=== PATIENT | female | born 1995 | race Caucasian/White ===

== ENCOUNTER 2025-08-18 21:41 | Emergency (ER) | payer BC, SELFPAY ==
--- OUTSIDE RECORDS SUMMARY | 2019-04-06 13:00 | XMS_ITS | Encounter Summary ---
Author Organization [facility] [place] [address] Care Team Providers Care Conference Concierge Name Role Phone Jimi Aldridge DO, Viral Primary Care Provider [phone] Encounter Details Date Type Department Care Team (Late st Contact Info) Description 04/06/2019 1:00 PM EDT Hospital Encounter EDG OB PREADM NURSE [facility] [place] [address] Social History Tobacco Use Types Packs/Day Years Used Date Smoking Tobacco: Never Smokeless Tobacco: Never Alcohol Use Standard Drinks/Week Comments No 0 (1 standard drink = 0.6 oz pur e alcohol) Overall Financial Resource Strain (CARDIA) Answe r Date Recorded How hard is it for you to pa y for the very basics like food, housing, medical care, and heating? Somewhat hard 12/28/2023 PHQ-2 Answer Date Recorded PHQ-2 Total Score 0 08/17/2024 [facility] [place] of Occupat ional Health - Occupational Stress Questionnaire Answer Date Recorded Do you feel stress - tense, restless, nervous, or anxious, or unable to sleep at night because your mind is troubled all the time - these days? To some extent 07/08/2023 Exercise Vital Sign Answer Date Recorde d On average, how many days pe r week do you engage in moderate to strenuous exercise (like a brisk walk)? 0 days 07/08/2023 On average, how many minutes do you engage in exercise at this level? 0 min 07/08/2023 Hunger Vital Sign Answer Date Recorded Within the past 12 months, y ou worried that your food would run out before you got the money to buy more. Never true 12/28/19 24 Within the past 12 months, t he food you bought just didn't last and you didn't have money to get more. Never true 12/28/2023 PRAPARE - Transportation Answer Date Re corded In the past 12 months, has l ack of transportation kept you from medical appointments or from getting medications? No 12/16 In the past 12 months, has l ack of transportation kept you from meetings, work, or from getting things needed for daily living? No 12/28/2023 Housing Stability Vital Sign Answer Joaquin e Recorded In the last 12 months, was t here a time when you were not able to pay the mortgage or rent on time? Yes 12/28/2023 In the last 12 months, how many places have you lived? 1 12/28/2023 In the last 12 months, was t here a time when you did not have a steady place to sleep or slept in a group home (including now)? No 12/28/2023 Sexually Active Control Partners Comments Yes Injection Male Comments No Sex and Gender Information Value Date Recorded Sex Assigned at Not on file Legal Sex Female 3:51 AM EDT Gender Identity Not on file Sexual Orientation Not on file COVID-19 Exposure Response Date Recorded In the last 10 days, have yo u been in contact with someone who was confirmed or suspected to have Coronavirus/COVID-19? No / Unsure 06/06/2023 8:11 PM EDT documented as of this encounter Functional Status * Cognitive and Functional Status Question Answer Date of Assessment Author Is the person deaf or does he/she have serious difficulty hearing? No 08/17/2024 11:34 AM EDT Hafsa Calderon RMA Is the person blind or does he/she have serious difficulty seeing even when wearing glasses? No 08/17/2024 11:34 AM EDT Hafsa Calderon RMA Does this person have seriou s difficulty walking or climbing stairs? No 08/17/2024 11:34 AM EDT Hafsa Calderon RMA Does this person have difficulty dressing or bathing? No 08/17/2024 11:34 AM EDT Rina De Jesus RMA * Alcohol Screening Score Answer Date of Assessment Author 0 06/08/2019 10:06 AM Toma Padilla RN * Drug Screening Score Answer Date of Assessment Author 0 06/08/2019 10:06 AM Toma Padilla RN * Question Answer Date of Assessment Author How often do you have a drin k containing alcohol? 0 06/08/2019 10:06 AM Sabrina Padilla se, RN * Is the person deaf or does he/she have serious difficulty hearing? Answer Date of Assessment Author No 03/22/2019 8:52 PM Jaleesa Mckenzie RN * Is the person blind or does he/she have serious difficulty seeing even when wearing glasses? Answer Date of Assessment Author No 03/22/2019 8:52 PM Jaleesa Mckenzie RN * Does this person have serious difficulty walking or climbing stairs? Answer Date of Assessment Author No 03/22/2019 8:52 PM Jaleesa Mckenzie RN * Does this person have difficulty dressing or bathing? Answer Date of Assessment Author No 03/22/2019 8:52 PM Jaleesa Mckenzie RN * Because of a physical, mental or emotional condition, does this person have difficulty doing errands alone such as visiting a doctor's office or shopping? Answer Date of Assessment Author No 03/22/2019 8:52 PM Jaleesa Mckenzie RN * PHQ-9 Total Score Answer Date of Assessment Author 0 08/17/2024 11:34 AM EDT Rina Calderon RMA * Question Answer Date of Assessment Author Do you ever wish you weren't alive anymore? (Past 1 Month) 0 04/10/2022 4:04 PM Apryl Hercules RN Have you thought about doing something to make youself not alive anymore? (Past 1 Month) 0 04/10/2022 4:04 PM Alyssia Hercules RN * Recent Risk Level: Answer Date of Assessment Author No Risk, Screening Complete 04/10/2022 4:04 PM Alyssia Domingo, RN * Question Answer Date of Assessment Author Little interest or pleasure in doing things 0 08/17/2024 11:34 AM EDT Hafsa Calderon, RMA Feeling down, depressed, or hopeless 0 08/17/2024 11:34 AM EDT Hafsa Calderon, RMA PHQ-2 Total Score 0 08/17/2024 11:34 AM EDT Rina Calderon, RMA * Question Answer Date of Assessment Author Feeling Nervous, Anxious, or on Edge 3 08/17/2024 11:34 AM EDT Hafsa Calderon, RMA Not Being Able to Stop or Control Worrying 3 08/17/2024 11:34 AM EDT Hafsa Calderon, RMA Worrying too Much About Different Things 3 08/17/2024 11:34 AM EDT Hafsa Calderon, RMA Trouble Relaxing 3 08/17/2024 11:34 AM EDT Rina Calderon, RMA Being so Restless That it is Hard to Sit Still 0 08/17/2024 11:34 AM EDT Hafsa Calderon, RMA Becoming Easily Annoyed or Irritable 0 08/17/2024 11:34 AM EDT Hafsa Calderon, RMA Feeling Afraid as if Somethi ng Awful Might Happen 0 08/17/2024 11:34 AM EDT Hafsa Calderon, RMA TERI-7 Total Score 12 08/17/2024 11:34 AM EDT Rina Calderon, RMA * Suicide Severity Rating Answer Date of Assessment Author No Risk 08/11/2024 8:26 AM EDT Ambreen Sosa * [place] Suicide Severity Rating Scale (Q shift for moderate and high) Question Answer Date of Assessment Author 1. In the past month, have y ou wished you were or wished you could go to sleep and not wake up? 0 08/11/2024 8:26 AM EDT Sheyla Sosa 2. In the past month, have y ou actually had any thoughts of killing yourself? (If no, skip to question 6) 0 08/11/2024 8:26 AM EDT Mariya Sosa 6. Have you ever done anythi ng, started to do anything, or prepared to do anything to end your life? 0 08/11/2024 8:26 AM EDT Dinah Sosa documented as of this encounter Mental Status * Cognitive and Functional Status Question Answer Entry Date Author Because of a physical, menta l or emotional condition, does this person have difficulty doing errands alone such as visiting a doctor's office or shopping? No 08/17/2024 11:34 AM EDT Erica Calderonsalinas ALEKSANDR malave Because of a physical, menta l or emotional condition, does this person have serious difficulty concentrating, remembering or making decisions? No 08/17/2024 11:34 AM EDT Hafsa Calderon RMToma * Because of a physical, mental or emotional condition, does this person have serious difficulty concentrating, remembering or making decisions? Answer Entry Date Author No 03/22/2019 8:52 PM EDT Jaleesa Logan RN documented in this encounter Plan of Treatment Upcoming Encounters Date Type Department Care Team (Latest Contact Info) Description 08/23/2025 2:55 PM EDT Hospital Encounter [facility] [address] [place] [address] Aiden Méndez MD [address] [place] [address] DR NUR [address] [place] [address] Preop testing (Primary Dx) 08/23/2025 2:55 PM EDT Anesthesia Event [facility] [address] [place] [address] Sadia Donald, SEWING MACHINE REPAIRER HELPER [address] [facility] [address] [place] [address] 08/23/2025 2:55 PM EDT - 08/23/2025 4:00 PM EDT Surgery [facility] [address] [place] [address] Aiden Méndez MD [address] [place] [address] [place] [address] HEMORRHOIDECTOMY Scheduled Procedures Name Priority Associated Diagnoses Date/Ti me HEMORRHOIDECTOMY Thrombosed external hemorrhoid 08/23/2025 2:55 PM EDT documented as of this encounter Goals Goal Patient Goal Type Associated Problems Recent Progress Patient-Stated? Author Blood Pressure < 140/90 Blood Pressure 128/99(2024 9:44 AM EDT) No Rina Calderon RMA Maintain a healthy diet, exercise regularly and maintain an ideal body weight General No Silvia Urbano RMA documented as of this encounter Visit Diagnoses Not on filedocumented in this encounter Additional Health Concerns Infection Onset Date Last Indicated Resolved Time R/O COVID-19 12/06/2020 12/06/2020 12/26/2020 10:1 3 PM EST documented as of this encounter Care Teams Conference Concierge Relationship Specialty Start Date End Date Jong Krause DO [address] [place] [id number] PCP - General 08/26/10 12/08/20 documented as of this encounter
--- OUTSIDE RECORDS SUMMARY | 2025-06-26 13:56 | XMS_ITS | Encounter Summary ---
Author Organization [place] [address] Care Team Providers Care Auto Adjudication Specialist Name Role Phone Boyd Aldridge MD, Spike Kristian Castanon MD Primary Care Provider [phone] Encounter Details Date Type Department Care Team (Latest Contact Info) Description 06/26/2025 1:56 PM EDT - 06/26/2025 11:59 PM EDT Hospital Encounter [place] [address] Annual physical exam Discharge Disposition: Home or Self Care Social History Tobacco Use Types Packs/Day Years [...] Date Recorded PHQ-2 Total Score 0 08/17/2024 [facility] [place] of Occupat ional Health - Occupational Stress [...] place to sleep or slept in a skilled nursing (including now)? No 12/28/2023 Sexually Active Control Partners Comments Yes Injection Male Comments No Sex and Gender Information Value Date Recorded Sex Assigned at Not on file Legal Sex Female 3:51 AM EDT Gender Identity Not on file Sexual Orientation Not on file documented as of this encounter Functional Status * Is the person deaf or does he/she have serious difficulty hearing? Answer Date of Assessment Author No 08/17/2024 11:34 AM JÚNIORT Rina Calderon RMA * Is the person blind or does he/she have serious difficulty seeing even when wearing glasses? Answer Date of Assessment Author No 08/17/2024 11:34 AM EDT Rina Calderon RMA * Does this person have serious difficulty walking or climbing stairs? Answer Date of Assessment Author No 08/17/2024 11:34 AM Rina Durand RMA * Does this person have difficulty dressing or bathing? Answer Date of Assessment Author No 08/17/2024 11:34 AM EDT Rina Calderon RMA * Because of a physical, mental or emotional condition, does this person have difficulty doing errands alone such as visiting a doctor's office or shopping? Answer Date of Assessment Author No 08/17/2024 11:34 AM EDT Rina Calderon RMA documented as of this encounter Mental Status * Because of a physical, mental or emotional condition, does this person have serious difficulty concentrating, remembering or making decisions? Answer Entry Date Author No 08/17/2024 11:34 AM EDT Rina Calderon RMA documented in this encounter Medications at Time of Discharge escitalopram oxalate (LEXAPRO) 10 mg Oral TabletIndications :Generalized anxiety disorder Take 1 Tablet by mouth daily. 30 Tablet 3 06/04/2025 07/27/2025 omeprazole (PRILOSEC) 20 mg Oral Capsule, Delayed Release(E.C.)Asiya cations:Dyspepsia Take 1 Capsule by mouth 2 times daily (before meals). 60 Capsule 2 06/04/2025 07/27/2025 valsartan-hydroch lorothiazide (DIOVAN-HCT) 160-12.5 mg Oral TabletIndications :Benign essential HTN Take 1 Tablet by mouth daily. 30 Tablet 06/04/2025 07/27/2025 documented as of this encounter Discharge Disposition Disposition Code Departure Means Destination Home or Self Care documented in this encounter Plan of Treatment Upcoming Encounters Date Type Department Care Team (Latest Contact Info) Description 08/23/2025 2:55 PM EDT Hospital Encounter [facility] [address] [place] [address] Aiden Méndez MD [address] [facility] [place] [address] Preop testing (Primary Dx) 08/23/2025 2:55 PM EDT Anesthesia Event [facility] [address] [place] [address] Sadia Donald APRN [address] [facility] [place] [address] 08/23/2025 2:55 PM EDT - 08/23/2025 4:00 PM EDT Surgery [facility] [address] [place] [address] Aiden Méndez MD [address] [place] [address] [place] [address] HEMORRHOIDECTOMY Scheduled Procedures Name Priority Associated Diagnoses [...] Urbano RMA documented as of this encounter Procedures Procedure Name Priority Date/Time Associated Diagnosis Comments LIPID PANEL REFLEX Routine 06/26/2025 1: 56 PM EDT Annual physical exam CBC WITH DIFF Routine 06/26/2025 1:56 PM EDT Annual physical exam COMPREHENSIVE METABOLIC PANEL Routine 06/26/2025 1:56 PM EDT Annual physical exam documented in this encounter Results * (ABNORMAL) LIPID PANEL REFLEX (06/26/2025 1:56 PM EDT) Cholesterol 162 <200 mg/dL 06/26/2025 8:29 PM EDT [facility] Comment: < 200 Desirable 200 - 239 Borderline High >= 240 High Triglyceride 57 <150 mg/dL 06/26/2025 8:29 PM EDT [facility] Comment: < 150 Normal 150 - 199 Borderline High 200 - 499 High >= 500 Very High HDL 47 >=40 mg/dL 06/26/2025 8:29 PM EDT [facility] Comment: > 60 Optimal 40 - 60 Acceptable < 40 Low LDL Calculated 104(H) <100 mg/dL 06/26/2025 8:29 PM EDT [facility] Comment: < 100 Optimal 100 - 129 Near or above optimal 130 - 159 Borderline High 160 - 189 High >= 190 Very High The National Institutes of Health (NIH) equation is used for all lipid panels that report calculated LDL (LDL-C). Non-HDL-C Calculated 115 <=129 mg/dL 06/26/2025 8:29 PM EDT [facility] Comment: <130 Desirable 130-159 Above Desirable 160-189 Borderline High 190-219 High >= 220 Very High Fasting Specimen? No None 025 8:29 PM EDT [facility] Blood VENOUS BLOOD / Unknown Venipuncture / Unknown 06/26/2025 1:56 PM EDT 06/26/2025 1:56 PM EDT us Kristian Vo MD CHEMISTRY ORDERABLES Final Resu lt [facility], [facility] [address] [facility] , [place] [address] * COMPREHENSIVE METABOLIC PANEL (06/26/2025 1:56 PM EDT) Sodium 138 136 - 145 mmol/L 06/26/2025 8:29 PM EDT [facility] Potassium 3.7 3.5 - 5.0 mmol/L 06/26/2025 8:29 PM EDT [facility] Chloride 104 98 - 107 mmol/L 06/26/2025 8:29 PM EDT [facility] Total CO2 24 22 - 29 mmol/L 06/26/2025 8:29 PM EDT [facility] Anion Gap 10 7 - 16 mmol/L 06/26/2025 8:29 PM EDT [facility] Calcium 9.6 8.6 - 10.4 mg/dL 06/26/2025 8:29 PM EDT [facility] Glucose Lvl 71 70 - 99 mg/dL 06/26/2025 8:29 PM EDT [facility] BUN 11 6 - 20 mg/dL 06/26/2025 8:29 PM EDT [facility] Creatinine 0.71 0.51 - 1.30 mg/dL 06/26/2025 8:29 PM EDT [facility], [facility] Albumin 4.3 3.5 - 5.2 gm/dL 06/26/2025 8:29 PM EDT [facility], [facility] Total Protein 7.9 6.4 - 8.3 gm/dL 06/26/2025 8:29 PM EDT [facility], [facility] Bili Total 0.3 0.2 - 1.3 mg/dL 06/26/2025 8:29 PM EDT [facility], [facility] ALT 11 <=41 U/L 06/26/2025 8:29 PM EDT [facility], [facility] AST 17 <=40 U/L 06/26/2025 8:29 PM EDT [facility] Alk Phos 83 36 - 123 U/L 06/26/2025 8:29 PM EDT [facility], [facility] eGFR (CKD-EPIcr 2020) 118 >=60 mL/min/1.7 3 m2 06/26/2025 8:29 PM EDT [facility], [facility] Comment:Estimated GFR was ca lculated using the CKD-EPIcr (2020) equation refit without race. The equation is recommended by the National Kidney Foundation - [place] [employer] of Nephrology Task Force. Blood VENOUS BLOOD / Unknown Venipuncture / Unknown 06/26/2025 1:56 PM EDT 06/26/2025 1:56 PM EDT us Kristian Vo MD CHEMISTRY ORDERABLES Final Resu lt [facility], [facility] [address] [facility] , [address] [place] [id number] * (ABNORMAL) CBC WITH DIFF (06/26/2025 1:56 PM EDT) WBC 6.5 3.7 - 10.3 x10(3)/mc L 06/26/2025 10:27 PM EDT [facility], [facility] RBC 4.90 3.90 - 5.20 x10(6)/mc L 06/26/2025 10:27 PM EDT [facility], [facility] Hgb 11.1(L) 11.2 - 15.7 g/dL 06/26/2025 10:27 PM EDT [facility] Hct 39.4 34.0 - 45.0 % 06/26/2025 10:27 PM EDT [facility] MCV 80.4 80.0 - 100.0 fL 06/26/2025 10:27 PM EDT [facility] MCH 22.7(L) 26.0 - 34.0 pg 06/26/2025 10:27 PM EDT [facility] MCHC 28.2(L) 30.7 - 35.5 g/dL 06/26/2025 10:27 PM EDT [facility] RDW 19.2(H) <=14.9 % 06/26/2025 10:27 PM EDT [facility] Platelet 530(H) 155 - 369 x10(3)/mc L 06/26/2025 10:27 PM EDT [facility] MPV 10.6 8.8 - 12.5 fL 06/26/2025 10:27 PM EDT [facility] Neut Percent 63.5 % 06/26/2025 10:27 PM EDT [facility] Comment:Neutrophils equals s egs plus bands Imm Gran% 0.3 % 06/26/2025 10:27 PM EDT [facility] Comment:Automated count of m etamyelocytes, myelocytes and promyelocytes. Lymph Percent 24.9 % 06/26/2025 10:27 PM EDT [facility] Holt Percent 9.8 % 06/26/2025 10:27 PM EDT [facility] Eos Percent 0.9 % 06/26/2025 10:27 PM EDT [facility] Baso Percent 0.6 % 06/26/2025 10:27 PM EDT [facility] Neut # 4.1 1.6 - 6.1 x10(3)/mc L 06/26/2025 10:27 PM EDT [facility] Comment:Neutrophils equals s egs plus bands IMMGRAN# 0.0 0.0 - 0.1 x10(3)/mc L 06/26/2025 10:27 PM EDT [facility] Comment:Automated count of m etamyelocytes, myelocytes and promyelocytes. An absolute IG <0.1 is reported as 0.0. Lymph # 1.6 1.2 - 3.9 x10(3)/mc L 06/26/2025 10:27 PM EDT [facility] [place] # 0.6 0.3 - 0.9 x10(3)/mc L 06/26/2025 10:27 PM EDT [facility] Eos# 0.1 0.0 - 0.5 x10(3)/mc L 06/26/2025 10:27 PM EDT [facility] Baso # 0.0 0.0 - 0.1 x10(3)/mc L 06/26/2025 10:27 PM EDT [facility] Hypochrom Slight 06/26/2025 10:27 PM EDT [facility] [place] Cell Moderate 06/26/2025 10:27 PM EDT [facility] Elliptocyte Occasional 06/26/2025 10:27 PM EDT [facility] Schistocyte 0-1 /HPF 06/26/2025 10:27 PM EDT [facility] Blood VENOUS BLOOD / Unknown Venipuncture / Unknown 06/26/2025 1:56 PM EDT 06/26/2025 1:56 PM EDT us Kristian Vo MD HEMATOLOGY ORDERABLES Final Res ult [facility] [address] [facility] , [place] [address] documented in this encounter Visit Diagnoses Diagnosis Annual physical exam Routine general medical examination at a health care facility Preop testing Preoperative examination, unspecified Thrombosed external hemorrhoid External thrombosed hemorrhoids documented in this encounter Care Teams Auto Adjudication Specialist Relationship Specialty Start Date End Date Kristian Vo MD [address] [place] [address] PCP - General Internal Medicine 12/24/22 Spike Nix MD Medical Oncologist Internal Medicine-Hematology and Oncology 11/03/21 documented as of this encounter
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
--- OUTSIDE RECORDS SUMMARY | 2025-08-02 09:00 | XMS_ITS | Encounter Summary ---
Author Organization [place] [address] Care Team Providers Care Drum Handler Name Role Phone Boyd Aldridge MD, [facility] Kristian Vo MD Primary Care Provider [phone] Reason for Referral * MRI/CAT Scan (Emergency) - PCP Precert Acquired Specialty Diagnoses / Procedures Referred By Contac t Referred To Contact Radiology Diagnoses Abdominal pain, LLQ (left lower quadrant) Abdominal pain, RLQ (right lower quadrant) Procedures CT ABDOMEN PELVIS W CONTRAST Kristian Vo MD [address] [place] [address] Phone: tel: fax: Referral ID Status Reason Start Date Expiration Date V isits Requested Visits Authorized [id number] PCP Precert Acquired 08/02/2025 08/02/2026 1 1 Reason for Visit * Reason Comments Abdominal Pain Lower right abdomina l pain started this morning. Painful when touched. 10 on pain scale. Pt still has their appendix. Encounter Details Date Type Department Care Team (Late st Contact Info) Description 08/02/2025 9:00 AM EDT Office Visit [facility] [address] [place] [address] Kristian Vo MD [address] [place] [address] Abdominal pain, LLQ (left lower quadrant) (Primary Dx); Abdominal pain, RLQ (right lower quadrant) Social History Tobacco Use Types Packs/Day Years [...] Date Recorded PHQ-2 Total Score 0 08/17/2024 [facility] Occupat ional Health - Occupational Stress [...] place to sleep or slept in a long term (including now)? No 12/28/2023 Sexually Active Control Partners Comments Yes Injection Male Comments No Sex and Gender Information Value Date Recorded Sex Assigned at Not on file Legal Sex Female 3:51 AM EDT Gender Identity Not on file Sexual Orientation Not on file documented as of this encounter Last Filed Vital Signs Vital Sign Reading Time Taken Comments Blood Pressure 120/70 08/02/2025 8:40 AM EDT Pulse 94 08/02/2025 8:40 AM EDT Temperature 36.6 C (97.8 F) 08/02/2025 8:40 AM EDT Respiratory Rate 18 08/02/2025 8:40 AM EDT Oxygen Saturation 99% 08/02/2025 8:40 AM EDT Inhaled Oxygen Concentration - - Weight 72.1 kg (159 lb) 08/02/2025 8:40 AM EDT Height 160 cm (5' 3 ) 08/02/2025 8:40 AM EDT Body Mass Index 28.17 08/02/2025 8:40 AM EDT documented in this encounter Functional Status * Is the person deaf or does he/she have serious difficulty hearing? Answer Date of Assessment Author No 08/17/2024 11:34 AM Esvin Durand RMA * Is the person blind or does he/she have serious difficulty seeing even when wearing glasses? Answer Date of Assessment Author No 08/17/2024 11:34 AM Esvin Durand RMA * Does this person have serious difficulty walking or climbing stairs? Answer Date of Assessment Author No 08/17/2024 11:34 AM Esvin Durand RMA * Does this person have difficulty dressing or bathing? Answer Date of Assessment Author No 08/17/2024 11:34 AM Esvin Durand RMA * Because of a physical, mental or emotional condition, does this person have difficulty doing errands alone such as visiting a doctor's office or shopping? Answer Date of Assessment Author No 08/17/2024 11:34 AM EDT Mainous, Esvin, RMA documented as of this encounter Mental Status * Because of a physical, mental or emotional condition, does this person have serious difficulty concentrating, remembering or making decisions? Answer Entry Date Author No 08/17/2024 11:34 AM EDT Esvin Hudson RMA documented in this encounter Progress Notes * Kristian Vo MD - 08/02/2025 9:00 AM EDT Images from the original note were not included. Assessment Diagnoses and all orders for this visit: Abdominal pain, LLQ (left lower quadrant) - SEP URINALYSIS POC - US ABDOMEN LIMITED; Future A new medicine wasprescribed during this office visit. I did discuss the reason for prescribing this new medication. I also informed of possible [...] on the AVS and they are aware. Iinquired of any questions and answered accordingly. Progress Note: Vitals: 08/02/25 0840 BP: 120/70 Pulse: 94 Resp: 18 Temp: 97.8 ??F (36.6 ??C) TempSrc: Temporal SpO2: 99% Weight: 159 lb (72.1 kg) Height: 5' 3 (1.6 m) SUBJECTIVE: Chief Complaint Patient presents with Abdominal Pain Lower right abdominal pain started this morning. Painful when touched. 10 on pain scale. Pt still has their appendix. HPI: LLQ pain 1d Started this morning Hurts to touch No fever/dyduria Lamp-today Review of Systems Constitutional: Negative for fever. HENT: Negative for congestion. Respiratory: Negative for cough and shortness of breath. Cardiovascular: Negative for chest pain. Gastrointestinal: Positive for abdominal pain. Neurological: Positive for headaches. Negative for dizziness and light-headedness. OBJECTIVE: Physical Exam Constitutional: Appearance: She is well-developed. HENT: Right Ear: External ear normal. Left Ear: External ear normal. Nose: Nose normal. Eyes: Pupils: [...] normal and symmetric. documented in this encounter Miscellaneous Notes * Addendum Note - Esvin Hudson RMA - 08/02/2025 9:00 AM EDTAddended by: ESVIN HUDSON on: 08/02/2025 12:47 PM Modules accepted: Orders documented in this encounter Plan of Treatment Upcoming Encounters Date Type Department Care Team (Latest Contact Info) Description 08/23/2025 2:55 PM EDT Hospital Encounter [facility] [address] [place] [address] Aiden Méndez MD [address] [place] [address] DR N[address] [place] [address] Preop testing (Primary Dx) 08/23/2025 2:55 PM EDT Anesthesia Event [facility] [address] [place] [address] Sadia Donald, OMAR [address] [facility] [address] [place] [address] 08/23/2025 2:55 PM EDT - 08/23/2025 4:00 PM EDT Surgery [facility] [address] [place] [address] Aiden Méndez MD [address] [place] [address] DR N[address] [place] [id number] HEMORRHOIDECTOMY Scheduled Orders Name Type Priority Associated Diagnoses Orde r Schedule CT ABDOMEN PELVIS W CONTRAST Imaging STAT Abdominal pain, LLQ (left lower quadrant) Abdominal pain, RLQ (right lower quadrant) 1 Occurrences starting 08/02/2025 until 08/02/2026 Scheduled Procedures Name Priority Associated Diagnoses Date/Ti me HEMORRHOIDECTOMY Thrombosed external hemorrhoid 08/23/2025 2:55 PM EDT documented as of this encounter Goals Goal Patient Goal Type Associated Problems Recent Progress Patient-Stated? Author Blood Pressure < 140/90 Blood Pressure 128/99(2024 9:44 AM EDT) No Esvin Hudson RMA Maintain a healthy diet, exercise regularly and maintain an ideal body weight General No Silvia Urbano RMA documented as of this encounter Procedures Procedure Name Priority Date/Time Associated Diagnosis Comments SEP URINALYSIS POC Routine 08/02/2025 8: 47 AM EDT Abdominal pain, RLQ (right lower quadrant) documented in this encounter Results * (ABNORMAL) SEP URINALYSIS POC (08/02/2025 8:47 AM EDT) UA Color POC Yellow Color 08/02/2025 8:49 AM EDT SEP LUIS ENRIQUE UA Appear POC Clear Clear 08/02/2025 8:49 AM EDT SEP LUIS ENRIQUE UA Gluc POC Negative Negative mg/dL 08/02/2025 8:49 AM EDT SEP LUIS ENRIQUE UA Bili POC Small(A) Negative 08/02/2025 8:49 AM EDT SEP LUIS ENRIQUE UA Ketones POC 40(A) Negative mg/dL 08/02/2025 8:49 AM EDT SEP LUIS ENRIQUE UA SG POC >=1.030 1.001 - 1.035 no units 08/02/2025 8:49 AM EDT SEP LUIS ENRIQUE UA Blood POC Large(A) Negative 08/02/2025 8:49 AM EDT SEP LUIS ENRIQUE UA pH POC 6.0 5.0 - 8.0 pH 08/02/2025 8:49 AM EDT SEP LUIS ENRIQUE UA Protein POC Trace(A) Negative mg/dL 08/02/2025 8:49 AM EDT SEP LUIS ENRIQUE UA Urobilinogen POC 0.2 0.2, 1.0 08/02/2025 8:49 AM EDT SEP LUIS ENRIQUE UA Nitrite POC Negative Negative 08/02/2025 8:49 AM EDT SEP LUIS ENRIQUE UA Leuk Est POC Negative Negative 8:49 AM EDT SEP LUIS ENRIQUE Urine STRUCTURE OF URINARY TRACT PROPER / Unknown 08/02/2025 8:47 AM EDT 08/02/2025 8:49 AM EDT us Kristian Vo MD POINT OF CARE TEST ORDERABLES F inal Result [place] [address] [place] [address] documented in this encounter Visit Diagnoses Diagnosis Abdominal pain, LLQ (left lower quadrant)- Primary Abdominal pain, left lower quadrant Abdominal pain, RLQ (right lower quadrant) Abdominal pain, right lower quadrant Preop testing Preoperative examination, unspecified Thrombosed external hemorrhoid External thrombosed hemorrhoids documented in this encounter Care Teams Drum Handler Relationship Specialty Start Date End Date Kristian Vo MD [address] [place] [id number] PCP - General Internal Medicine 12/24/22 Spike Nix MD Medical Oncologist Internal Medicine-Hematology and Oncology 11/03/21 documented as of this encounter
--- OUTSIDE RECORDS SUMMARY | 2025-08-02 10:43 | XMS_ITS | Encounter Summary ---
Author Organization [place] [address] Care Team Providers Care Payroll Associate Name Role Phone Boyd Aldridge MD, [facility] Kristian Vo MD Primary Care Provider [phone] Reason for Visit * Ultrasound (Emergency) - Pending Review Specialty Diagnoses / Procedures Referred By Contac t Referred To Contact Radiology Diagnoses Abdominal pain, LLQ (left lower quadrant) Procedures US APPENDIX US ABDOMEN LIMITED Kristian Vo MD [address] [place] [address] Phone: tel: fax: Referral ID Status Reason Start Date Expiration Date V isits Requested Visits Authorized [id number] Pending Review 08/02/2025 08/02/2026 1 1 Encounter Details Date Type Department Care Team (Latest Contact Info) Description 08/02/2025 10:43 AM EDT - 08/02/2025 11:59 PM EDT Hospital Encounter [facility] Ultrasound [address] [place] [address] Kristian Vo MD [address] [place] [address] Abdominal pain, LLQ (left lower quadrant) Discharge Disposition: Home or Self Care Social [...] Date Recorded PHQ-2 Total Score 0 08/17/2024 [facility] Occupat ional Health - Occupational Stress [...] Entry Date Author No 08/17/2024 11:34 AM EDRina Walton RMA documented in this encounter Medications at Time of Discharge escitalopram oxalate (LEXAPRO) 10 mg Oral TabletIndications :Generalized anxiety disorder Take 1 Tablet by mouth daily. 30 Tablet 3 07/27/2025 omeprazole (PRILOSEC) 20 mg Oral Capsule, Delayed Release(E.C.)Asiya cations:Dyspepsia Take 1 Capsule by mouth 2 times daily (before meals). 60 Capsule 2 07/27/2025 valsartan-hydroch lorothiazide (DIOVAN-HCT) 160-12.5 mg Oral TabletIndications :Benign essential HTN Take 1 Tablet by mouth daily. 30 Tablet 07/27/2025 Brompheniramine-P seudoeph-DM 2-30-10 mg/5 mL Oral SyrupIndications: Congestion of nasal sinus Take 10 mL by mouth every 4 hours as needed (Cough, Nasal Congestion, Allergies). 240 mL 07/12/2025 08/09/2025 documented as of this encounter Discharge Disposition Disposition Code Departure Means Destination Home or Self Care documented in this encounter Plan of Treatment Upcoming Encounters Date Type Department Care Team (Latest Contact Info) Description 08/23/2025 2:55 PM EDT Hospital Encounter [facility] [address] [place] [address] Aiden Méndez MD [address] [facility] [address] NUR [facility] [place] [address] Preop testing (Primary Dx) 08/23/2025 2:55 PM EDT Anesthesia Event [facility] [address] [place] [address] Sadia Donald APRN [address] [facility] [address] [place] [address] 08/23/2025 2:55 PM EDT - 08/23/2025 4:00 PM EDT Surgery [facility] [address] [place] [address] Aiden Méndez MD [address] [place] [address] DR N[address] [place] [address] HEMORRHOIDECTOMY Scheduled Procedures Name Priority Associated Diagnoses [...] Procedure Name Priority Date/Time Associated Diagnosis Comments US APPENDIX STAT 08/02/2025 11:52 AM EDT Abdominal pain, LLQ (left lower quadrant) documented in this encounter Results * US APPENDIX (08/02/2025 11:52 AM EDT) Anatomical Region Laterality Modality Abdomen Ultrasound 08/02/2025 11:5 2 AM EDT Impressions 08/02/2025 12:03 PM EDT No findings to indicate appendicitis but the appendix was not positively identified. If symptoms persist or clinical suspicion is high, CT scan of the abdomen and pelvis with oral and IV contrast would be indicated. - Note: Radiology results need to be interpreted within a comprehensive clinical context. If you have questions about the radiology report, please contact the office of the ordering clinician. Narrative 08/02/2025 12:03 PM EDT US APPENDIX, 08/02/2025 11:52 AM CLINICAL HISTORY: R10.32-Left lower quadrant [id number]. COMPARISON: None. PROCEDURE COMMENTS: Routine sonographic evaluation of the region of interest with sales representative public utilities images sent to PACS along with interpretive naturalist notes. FINDINGS: Sonography of the right lower quadrant was obtained using graded compression technique. The appendix is not visualized. No noncompressible tender bowel loops identified. No abnormally enlarged lymph nodes or fluid. The right ovary is normal at 3.7 x 1.4 x 2.0 cm. Procedure Note Bigg Ayala MD - 08/02/2025 US APPENDIX, 08/02/2025 11:52 AM CLINICAL HISTORY: R10.32-Left lower quadrant [id number]. COMPARISON: None. PROCEDURE COMMENTS: Routine sonographic evaluation of the region ofinterest with sales representative public utilities images sent to PACS along with interpretive naturalist notes. FINDINGS: Sonography of the right lower quadrant was obtained using gradedcompression technique. The appendix is not visualized. No noncompressible tender bowel loops identified. No abnormally enlarged lymph nodes or fluid. The right ovary is normal at 3.7 x 1.4 x 2.0 cm. IMPRESSION: No findings to indicate appendicitis but the appendix was not positively identified. If symptoms persist or clinical suspicion is high,CT scan of the abdomen and pelvis with oral and IV contrast would beindicated. - Note: Radiology results need to be interpreted within a comprehensiveclinical context. If you have questions about the radiology report, please contactthe office of the ordering clinician. Kristian Vo MD [facility] US ORDERABLES Final Result documented in this encounter Visit Diagnoses Diagnosis Abdominal pain, LLQ (left lower quadrant) Abdominal pain, left lower quadrant Preop testing Preoperative examination, unspecified Thrombosed external hemorrhoid External thrombosed hemorrhoids documented in this encounter Care Teams Payroll Associate Relationship Specialty Start Date End Date Kristian Vo MD [address] [place] [address] PCP - General Internal Medicine 12/24/22 Spike Nix MD Medical Oncologist Internal Medicine-Hematology and Oncology 11/03/21 documented as of this encounter
--- OUTSIDE RECORDS SUMMARY | 2025-08-09 09:45 | XMS_ITS | Encounter Summary ---
Author Organization [place] [address] Care Team Providers Care Principal Clerk Name Role Phone Boyd Aldridge MD, [facility] Kristian Alves MD Primary Care Provider [phone] Reason for Referral * (Routine) - Pending Review Specialty Diagnoses / Procedures Referred By Contac t Referred To Contact Diagnoses Thrombosed external hemorrhoid Procedures BETA SURGERY COMMUNICATION ORDER Aiden Méndez MD [address] [place] [address] DR N[address] [place] [address] Phone: tel: fax: Referral ID Status Reason Start Date Expiration Date V isits Requested Visits Authorized [id number] Pending Review 08/09/2025 08/09/2026 1 1 Reason for Visit * Reason Comments Hemorrhoids Thrombosed hemorrhoi d Encounter Details Date Type Department Care Team (Late st Contact Info) Description 08/09/2025 9:45 AM EDT Office Visit SEP Gen Surgery [facility] [address] [place] [address] Aiden Méndez MD [address] [place] [address] DR [address] [place] [address] Thrombosed external hemorrhoid (Primary Dx) Social History Tobacco Use Types Packs/Day Years Used Date Smoking Tobacco: Never Smokeless Tobacco: Never Tobacco Cessation:Counseling Given: Not Answered Alcohol Use Standard Drinks/Week Comments No 0 (1 standard drink = 0.6 oz pur e alcohol) Overall Financial Resource Strain (CARDIA) Answe r Date Recorded How hard is it for you to pa y for the very basics like food, housing, medical care, and heating? Somewhat hard 12/28/2023 PHQ-2 Answer Date Recorded PHQ-2 Total Score 0 08/17/2024 [facility] [place] of Occupat ional Health - Occupational Stress [...] Sign Reading Time Taken Comments Blood Pressure 128/99 08/09/2025 9:44 AM EDT Pulse 79 08/09/2025 9:44 AM EDT Temperature 36.7 C (98 F) 08/09/2025 9:44 AM EDT Respiratory Rate 18 08/09/2025 9:44 AM EDT Oxygen Saturation - - Inhaled Oxygen Concentration - - Weight 72.3 kg (159 lb 6.4 oz) 08/09/2025 9:44 A M EDT Height 160 cm (5' 3 ) 08/09/2025 9:44 AM EDT Body Mass Index 28.24 08/09/2025 9:44 AM EDT documented in this encounter Functional [...] 08/17/2024 11:34 AM Rina Durand RMA * Because of a physical, mental or emotional condition, does this person have difficulty doing errands alone such as visiting a doctor's office or shopping? Answer Date of Assessment Author No 08/17/2024 11:34 AM Rina Durand RMA documented as of this encounter Mental Status * Because of a physical, mental or emotional condition, does this person have serious difficulty concentrating, remembering or making decisions? Answer Entry Date Author No 08/17/2024 11:34 AM Rina Durand RMA documented in this encounter Progress Notes * Aiden Méndez MD - 08/09/2025 9:45 AM EDT Subjective: Patient ID: Carrie Thakur is a 30 y.o. female. Chief Complaint Patient presents with Hemorrhoids Thrombosed hemorrhoid Patient is a pleasant otherwise healthy 30-year-old woman. She has history of hemorrhoids with previous thrombosed hemorrhoid around the time of her in 2016. Treated at that time with incision and evacuation of thrombus. She notes that she does have history of chronic constipation. She does not currently take anything for it. She had a bout of constipation last week and over the last 3 days has noticed swelling at the area of previous thrombosed hemorrhoid. This has been very uncomfortable although she states today pain is a little bit better than it was before. No prior hemorrhoidectomy. Patients past medical, family and social histories were reviewed and updated. There were no changesexcept as noted. Review of Systems Constitutional: Negative for appetite change, chills, diaphoresis, fatigue, fever and unexpected weight change. HENT: Negative for ear pain, hearing loss, nosebleeds, sore throat and voice change. Eyes: Negative for photophobia, pain and visual disturbance. Respiratory: Negative for cough, choking, chest tightness, shortness of breath and wheezing. Cardiovascular: Negative for chest pain, palpitations and leg swelling. Gastrointestinal: Positive for constipation and rectal pain. Negative for abdominal distention, abdominal pain, anal bleeding, blood in stool, diarrhea, nausea and vomiting. Genitourinary: Negative for difficulty urinating, dysuria, flank pain, frequency and vaginal discharge. Musculoskeletal: Negative for arthralgias, back pain, gait problem, joint swelling, myalgias and neck pain. Skin: Negative for color change, rash and wound. Neurological: Negative for dizziness, seizures, speech difficulty, weakness, light-headedness, numbness and headaches. Hematological: Negative for adenopathy. Does not bruise/bleed easily. Psychiatric/Behavioral: Negative for confusion, decreased concentration and hallucinations. The patient is not nervous/anxious. Objective: Vitals: 08/09/25 0944 BP: 128/99 Pulse: 79 Resp: 18 Temp: 98 ??F (36.7 ??C) TempSrc: Forehead Weight: 159 lb 6.4 oz (72.3 kg) Height: 5' 3 (1.6 m) Body mass index is 28.24 kg/m??. Physical Exam Constitutional: General: She is not in acute distress. Appearance: Normal appearance. She is not toxic-appearing. HENT: Head: Normocephalic and atraumatic. Eyes: Extraocular Movements: Extraocular movements intact. Conjunctiva/sclera: Conjunctivae normal. Cardiovascular: Rate and Rhythm: Normal rate and regular rhythm. Pulses: Normal pulses. Pulmonary: Effort: Pulmonary effort is normal. No respiratory distress. Abdominal: General: There is no distension. Palpations: Abdomen is soft. Tenderness: There is no abdominal tenderness. There is no guarding. Genitourinary: Comments: Thrombosed external hemorrhoid in the right anterior position. No erythema or skin necrosis. Minimal tenderness to palpation Musculoskeletal: Cervical back: Normal range of motion and neck supple. Skin: General: Skin is warm and dry. Neurological: General: No focal deficit present. Mental Status: She is alert and oriented to person, place, and time. Psychiatric: Mood and Affect: Mood normal. Behavior: Behavior normal. Assessment & Plan Thrombosed external hemorrhoid No indication for emergent surgery although given recurrent episodes patient would like to pursue hemorrhoidectomy. Discussed risk benefits and alternatives and she would like to proceed. Will schedule at patient's convenience No follow-ups on file. documented in this encounter Plan of Treatment Upcoming Encounters Date Type Department Care Team (Latest Contact Info) Description 08/23/2025 2:55 PM EDT Hospital Encounter [facility] [address] [place] [address] Aiden Méndez MD [address] [facility] [place] [address] Preop testing (Primary Dx) 08/23/2025 2:55 PM EDT Anesthesia Event [facility] [address] [place] [address] Sadia Donald APRN [address] [facility] [place] [address] 08/23/2025 2:55 PM EDT - 08/23/2025 4:00 PM EDT Surgery [facility] [address] [place] [address] Aiden Méndez MD [address] [facility] [place] [address] HEMORRHOIDECTOMY Scheduled Procedures Name Priority Associated Diagnoses Date/Ti me HEMORRHOIDECTOMY Thrombosed external hemorrhoid 08/23/2025 2:55 PM EDT documented as of this encounter Goals Goal Patient Goal Type Associated Problems Recent Progress Patient-Stated? Author Blood Pressure < 140/90 Blood Pressure 128/99(2024 9:44 AM EDT) Rina Pastor RMA Maintain a healthy diet, exercise regularly and maintain an ideal body weight General No Silvia Urbano RMA documented as of this encounter Visit Diagnoses Diagnosis Thrombosed external hemorrhoid- Primary External thrombosed hemorrhoids Preop testing Preoperative examination, unspecified Thrombosed external hemorrhoid External thrombosed hemorrhoids documented in this encounter Discontinued Medications Medication Sig Discontinue Reason Start Date End Da te Brompheniramine-Pseudo eph-DM 2-30-10 mg/5 mL Oral SyrupIndications:Conge stion of nasal sinus Take 10 mL by mouth every 4 hours as needed (Cough, Nasal Congestion, Allergies). DELETE-Therapy completed 07/12/2025 08/09/2025 documented as of this encounter Orders Nursing Count Last Ordered Date First Orde red Date BETA SURGERY COMMUNICATION ORDER 1 08/09/20 documented in this encounter Care Teams Principal Clerk Relationship Specialty Start Date End Date Kristian Vo MD [address] [place] [address] PCP - General Internal Medicine 12/24/22 Spike Nix MD Medical Oncologist Internal Medicine-Hematology and Oncology 11/03/21 documented as of this encounter
--- NOTE | 2025-08-18 21:51 | HMH.EDGENADL ---
Discharge Plan Disposition Patient Disposition: Home, Self-Care Prescriptions Prescriptions: New ondansetron 4 mg tablet,disintegrating 4 mg PO Q6H PRN (Reason: nausea and vomiting) Qty: 12 0RF Referrals Follow up/Referrals: Behavioral Health [Provider Group, Behavioral Health] - See instructions Kristian Vo [Primary Care Provider, Medical] - See instructions Activity Restrictions/Add. Instructions Additional Instructions/Restrictions: Avoid excessive alcohol use in the future. I am providing you with a referral to our behavioral health team. I do encourage you to call this number to schedule an appointment. Continue to hydrate well over the next few days by drinking plenty of water, sugar-free Gatorade and Pedialyte. I am prescribing Zofran for any nausea you may have over the next few days. Take this as prescribed. Clinical Impressions Clinical Impression: Alcoholic intoxication Print Language Print Language: Egyptian Discharge ED Provider: Dawood Abreu General Adult HPI General Chief complaint: Alcohol Stated complaint: Alcohol Time Seen by Provider: 08/18/25 21:45 Mode of Arrival: EMS Source of Information: Patient Limitations: No Limitations History of Present Illness HPI narrative: Carrie Thakur is a 30-year-old female with a history of anxiety who presents to the Emergency Department via EMS for alcohol intoxication. Patient states that her and her mom treat her like she is retarded and she could not handle it tonight and drink two bottles of vodka starting at 5 PM today. She states that she knows that she drink too much. She denies taking any additional medication. She denies any attempts to harm herself or harm other people and she just wanted to take the stress away. She does state that she feels safe at home and is not being harmed physically in any way. She states that she is not being seen by therapist or counselor. She denies any chest pain, shortness of breath, abdominal pain or illnesses of any kind. She states that she normally does not drink. Related Data Previous Rx's ?Medication ?Instructions ?Recorded ondansetron 4 mg disintegrating 4 mg PO Q6H PRN nausea and 08/18/25 tablet vomiting #12 tabs Allergies Allergy/AdvReac Type Severity Reaction Status Date / Time No Known Allergies Allergy Verified 08/18/25 22:36 [facility] Disclaimer: The information contained in this section may have been updated after the patient was seen, as this information can be updated by other users. Social History Smoking Status: Never smoker alcohol intake: current current occupational status: employed Travel in the last 8 weeks?: None ROS Obtained: Yes Systems reviewed as appropriate & no additional complaints except as documented Physical Exam General General appearance: alert, in no apparent distress and appears intoxicated Head Head exam: atraumatic Eye Eye exam: Present normal appearance ENT ENT exam: Present normal external ear exam Neck Neck exam: Present full ROM Chest Chest inspection: Present symmetric chest wall rise Respiratory Respiratory exam: Present normal lung sounds bilaterally; Absent respiratory distress, wheezes or stridor Cardiovascular Cardiovascular exam: Present regular rate and normal rhythm Abdominal Exam Abdominal exam: Present soft; Absent tenderness or guarding Extremities Exam Extremities exam: Present normal inspection Back Exam Back exam: Present normal inspection Neurological Exam Neurological exam: Present alert and oriented X3 Psychiatric Psychiatric exam: Present normal affect; Absent homicidal ideation or suicidal ideation Skin Skin exam: Present warm and dry Medical Decision Making Medical Records Screening: Per USPSTF and CDC recommendations, given the prevalence of disease in our region, it is our hospital?s policy to screen for HIV and viral Hepatitis for all patients aged 18 and over and those with ongoing risk factors. Bharath Inquiry Pt receiving controlled substance: No Vital Signs: 08/18/25 21:52 08/18/25 22:00 08/18/25 22:30 Temperature 98.9 F Temperature Source Oral Pulse Rate 71 Pulse Rate [Radial] 84 Respiratory Rate 14 23 20 Blood Pressure 144/102 H 116/92 H Blood Pressure [Right Arm] 129/89 Blood Pressure Mean [Right Arm] 102 Blood Pressure Position [Right Arm] Sitting 02 Sat by Pulse Oximetry 94 L 95 100 Oxygen Delivery Method Room Air Orders (Tests/Meds): ED MEDICATIONS Discontinued Medications Generic Name Dose Route Start Last Admin Trade Name Freq PRN Reason Stop Dose Admin Lactated Ringer's 1,000 mls @ 999 mls/hr 08/18/25 21:53 08/18/25 22:07 Lactated Ringer's 1000 Ml Bag IV 08/18/25 22:53 999 mls/hr .Q1H1M ONE Administration Ondansetron HCl 4 mg 08/18/25 21:53 08/18/25 22:07 Ondansetron 4mg/2ml Vial IV 08/18/25 21:54 4 mg ONCE ONE Administration Medical Decision Narrative: Carrie Thakur is a 30-year-old female with a history of anxiety who presents to the Emergency Department via EMS for alcohol intoxication. Patient states that her and her mom treat her like she is retarded and she could not handle it tonight and drink two bottles of vodka starting at 5 PM today. She states that she knows that she drink too much. She denies taking any additional medication. She denies any attempts to harm herself or harm other people and she just wanted to take the stress away. She does state that she feels safe at home and is not being harmed physically in any way. She states that she is not being seen by therapist or counselor. She denies any chest pain, shortness of breath, abdominal pain or illnesses of any kind. She states that she normally does not drink. On arrival, patient is hemodynamically stable, in no acute distress, breathing comfortably on room air. Afebrile. She is alert and mentating appropriately. She is intoxicated. Abdomen is soft, nontender nondistended. Cardiopulmonary exam is unremarkable. Lab work was considered, however would not belt changer as patient has no complaints other than being intoxicated. She did vomit here in the emergency department and will give 4 mg of IV Zofran and 1 L lactated ringer. Will allow patient to metabolize alcohol. is here and she is okay with him coming back to the room. On reassessment, patient's mother, Catia, is at the bedside. She does indicate that patient's marriage has not been great recently and that patient's does not treat her right. Patient's mother and patient have agreed that she will go home with her mike. At this time, patient is resting comfortably. She will awaken easily with verbal stimuli and has not had any additional nausea and is comfortable going home at this time. I did discuss getting her referral to behavioral health team and encouraged her to contact them to schedule an appointment to help with her stress management and to try to avoid excessive alcohol use as an outlet for stress relief in the future. She demonstrated understanding and was in agreement with this plan. Will send her with a prescription for Zofran to help with any additional nausea she may have. Return precautions were given. All questions were answered. She was then discharged in stable condition with her mom. Critical Care Critical Care Time Critical Care Time: No
[2025-08-18 21:52] VITALS: BP 129/89; PULSE 84; RESP 14; TEMP 37.2; O2SAT 94; BMI 24.6
[2025-08-18 22:00] VITALS: BP 144/102; RESP 23; O2SAT 95
[2025-08-18] MEDS: LACTATED RINGERS 1000ML 1,000 ML 999 ML IV (22:07)
[2025-08-18] MEDS: ONDANSETRON 4MG/2ML VIAL 4 MG IV (22:07)
--- OUTSIDE RECORDS SUMMARY | 2025-08-18 22:22 | XMS_ITS | Clinical Summary ---
Author Organization [facility] Address [address] [place] [phone] Phone Care Team Providers Care Director Market Research Name Role Phone Perry COSTA, Sherman Bahena Primary Care Physician [phone] [ ] Conditions or Problems Problem Name Problem Code Onset Date Status Entry Date Provider Comment Standard Description Annotate Body mass index (BMI) 34.0-34.9; adult Z68.34 (ICD-10-CM) 02/02 Active 02/06 Sherman Amador MD Body mass index [BMI] 34.0-34.9, adult Sterilization counseling [id number] 3 (SNOMED CT) 02/02 Active 02/06 Sherman Amador MD Counseling for sterilization done Asthma 531019134 (SNOMED CT) 02/02 Active 02/02 Sherman Amador MD Asthma Anxiety Disorder [id number] (SNOMED CT) 02/02 Active 02/02 Sherman Amador MD Anxiety disorder Medications Medication Instructions Start Date Stop Date Generic Name [facility] Provider LOSARTAN POTASSIUM 50 MG TABS Take 1 tablet by mouth twice a day losartan [id number] Sherman Amador MD FLUOXETINE HCL 20 MG TABS Take 1 tablet by mouth once a day fluoxetine [id number] Sherman Amador MD Medications Administered No information available. Allergies, Adverse Reactions, Alerts Observed no known allergies at Results Date Name Value Unit Range Flag Description Office Visit: 3 LABS ORDERED Urine Dip Auto 65241 Laboratory tests ordered SPEC GR URIN 1.020 Specific gravity of Urine by Test strip PH URINE 6.0 pH of Urine by Test strip GLUCOSE, URN negative Glucose [Mass/volume] in Urine by Test strip BILIRUBIN UR negative Bilirub in.total [Presence] in Urine by Test strip KETONES URN negative Ketones [Mass/volume] in Urine by Test strip BLOOD UR DIP negative blood i n urine (hemoglobin) by dipstick PROTEIN, URN negative protein , urine, semiquantitative (dipstick) UROBILINOGEN 0.2 Urobilin ogen [Presence] in Urine by Test strip NITRITE URN negative Nitrite [Presence] in Urine by Test strip WBC DIPSTK U 3+ Leukocyt e esterase [Presence] in Urine by Test strip Clinical Summary: Preload En try for OB TRICHOM DNA NOT DETECTED Tric homonas vaginalis DNA [Presence] in Specimen by GLYNN with probe detection Plan of Care Type Date Detail Pending order Urine Dip Auto 8 1003 Procedures Code Procedure Name Date Entry Date CPT-3077F Most recent systolic blood pressure >=140 mm Hg [facility]-[id number] Medication Reconciliation Vital Signs Date Name Value Unit Description BMI (Body Mass Index) 34.74 kg/m2 Bod y Mass Index (Ratio) BP Diastolic 93 mm[Hg] blood pressu re, diastolic BP Systolic 145 mm[Hg] blood pressur e, systolic BSA (Body Surface Area) 1.99 b yanci surface area Heart Rate 111 /min pulse rate Heart Rate 97 /min pulse rate 10 Height 63 [in_us] height E&M Height 160.02 cm height in cent imeters E&M Weight Measured 195.4 [lb_av] weight E& M Weight Measured 195.4 [lb_av] weight E& M Weight Measured 88.82 kg weight in kilograms E&M Immunizations No information available. Advance Directives No information available.
--- OUTSIDE RECORDS SUMMARY | 2025-08-18 22:23 | XMS_ITS | Encounter Summary ---
Author Organization [place] [address] Care Team Providers Care Case Fitter Name Role Phone Boyd Aldridge MD, Kristian Mayer MD Primary Care Provider [phone] Reason for Visit * Reason Onset Date Comments Medication Refill 08/20/2023 Encounter Details Date Type Department Care Team (Late st Contact Info) Description 08/20/2023 Refill [facility] [address] [place] [address] Luigi Jarvis MD [address] [place] [address] Medication Refill Social History Tobacco Use Types Packs/Day Years Used Date Smoking Tobacco: Never Smokeless Tobacco: Never Alcohol Use Standard Drinks/Week Comments No 0 (1 standard drink = 0.6 oz pur e alcohol) Overall Financial Resource Strain (CARDIA) Answe r Date Recorded How hard is it for you to pa y for the very basics like food, housing, medical care, and heating? Hard 07/08/2023 PHQ-2 Answer Date Recorded PHQ-2 Total Score 0 05/03/2023 [facility] [place] of Occupat ional Health - Occupational Stress [...] you got the money to buy more. Often true Within the past 12 months, t he food you bought just didn't last and you didn't have money to get more. Sometimes true PRAPARE - Transportation Answer Date Re corded In the past 12 months, has l ack of transportation kept you from medical appointments or from getting medications? Yes 07/08/2023 In the past 12 months, has l ack of transportation kept you from meetings, work, or from getting things needed for daily living? Patient declined 07/08/2023 Housing Stability Vital Sign Answer Joaquin e Recorded In the last 12 months, was t here a time when you were not able to pay the mortgage or rent on time? Yes 07/08/2023 In the last 12 months, how many places have you lived? 1 07/08/2023 In the last 12 months, was t here a time when you did not have a steady place to sleep or slept in a m[facility]p (including now)? No 07/08/2023 Sexually Active Control Partners Comments Yes Injection [...] hearing? Answer Date of Assessment Author No 05/03/2023 11:06 AM EDT Rina Calderon RMA * Is the person blind or does he/she have serious difficulty seeing even when wearing glasses? Answer Date of Assessment Author No 05/03/2023 11:06 AM JÚNIORT Rina Calderon RMA * Does this person have serious difficulty walking or climbing stairs? Answer Date of Assessment Author No 05/03/2023 11:06 AM EDT Rina Calderon RMA * Does this person have difficulty dressing or bathing? Answer Date of Assessment Author No 05/03/2023 11:06 AM EDT Kvng RinaALEKSANDR * Because of a physical, mental or emotional condition, does this person have difficulty doing errands alone such as visiting a doctor's office or shopping? Answer Date of Assessment Author No 05/03/2023 11:06 AM EDT Rina Calderon RMA documented as of this encounter Mental Status * Because of a physical, mental or emotional condition, does this person have serious difficulty concentrating, remembering or making decisions? Answer Entry Date Author No 05/03/2023 11:06 AM EDT Rina Calderon RMA documented in this encounter Plan of Treatment Upcoming Encounters Date Type Department Care Team (Latest Contact Info) Description 08/23/2025 2:55 PM EDT Hospital Encounter [facility] [address] [place] [place] [address] Aiden Méndez MD [address] [place] [address] DR NUR [facility] [place] [address] Preop testing (Primary Dx) 08/23/2025 2:55 PM EDT Anesthesia Event [facility] [address] [place] [address] Sadia Donald, OMAR [address] [place] [address] 08/23/2025 2:55 PM EDT - 08/23/2025 4:00 PM EDT Surgery [facility] [address] [place] [address] Aiden Méndez MD [address] [place] [address] DR [address] [place], [place] [address], [place] [address] HEMORRHOIDECTOMY Scheduled Procedures Name Priority Associated Diagnoses [...] as of this encounter Visit Diagnoses Diagnosis Arthritis of right temporomandibular joint Generalized anxiety disorder Preop testing Preoperative examination, unspecified Thrombosed external hemorrhoid External thrombosed hemorrhoids documented in this encounter Care Teams Case Fitter Relationship Specialty Start Date End Date Kristian Vo MD [address] [place] [address] [place] [address] PCP - General Internal Medicine 12/24/22 Spike Nix MD Medical Oncologist Internal Medicine-Hematology and Oncology 11/03/21 documented as of this encounter
--- OUTSIDE RECORDS SUMMARY | 2025-08-18 22:23 | XMS_ITS | Encounter Summary ---
Author Organization [facility] Address [address] [place] [address] [place] [address] Phone Care Team Providers Care Wood Heel Attacher Name Role Phone Jong Krause Primary Care Provider [phone] Reason for Referral * Radiology Services (Routine) - Closed Specialty Diagnoses / Procedures Referred By Contac t Referred To Contact Procedures OB US STANDARD SECOND OR THIRD TRIMESTER HISTORICAL MED Referral ID Status Reason Start Date Expiration Date V isits Requested Visits Authorized [id number] Closed Specialty Services Required 06/14/2019 06/13/2020 150 150 Encounter Details Date Type Department Care Team (Late st Contact Info) Description 06/14/2019 [facility] [address] [place] [phone] Social History Tobacco Use Types Packs/Day Years Used Date Smoking Tobacco: Never Assessed Comments Unknown Sex and Gender Information Value Date Recorded Sex Assigned at Not on file Legal Sex Female 3:10 PM EDT Gender Identity Not on file Sexual Orientation Not on file documented as of this encounter Plan of Treatment Not on file documented as of this encounter Procedures Procedure Name Priority Date/Time Associated Diagnosis Comments OB US STANDARD SECOND OR THI RD TRIMESTER Routine 06/06/2019 documented in this encounter Results * OB US STANDARD SECOND OR THIRD TRIMESTER (06/06/2019) Anatomical Region Laterality Modality Abdomen, Pelvis Ultrasound us Historical Med OBUS Final Result documented in this encounter Visit Diagnoses Not on filedocumented in this encounter Care Teams Wood Heel Attacher Relationship Specialty Start Date End Date Jong Krause DO PCP - General Family Medicine 09/06/15 documented as of this encounter
--- OUTSIDE RECORDS SUMMARY | 2025-08-18 22:23 | XMS_ITS | Clinical Summary ---
Author Organization [facility] Address [address] [place] [address] Phone Care Team Providers Care Premix Concrete Batcher Name Role Phone Jong Krause Primary Care Provider [phone] Social History Tobacco Use Types Packs/Day Years Used Date Smoking Tobacco: Never Assessed Comments Unknown Sex and Gender Information Value Date Recorded Sex Assigned at Not on file Legal Sex Female 3:10 PM EDT Gender Identity Not on file Sexual Orientation Not on file Plan of Treatment Health Maintenance Due Date Last Done Comments DTap,Tdap,and Td (1 - Tdap) 2008 Pap Screening 2018 HPV (1 - 3-dose SCDM series) 2024 Influenza Vaccine (#1) 2025 RSV Vaccine (60+ or ) (1 - 1-dose 75+ series) 2072 Meningococcal conjugate abdias nt 4 (MCV4) Aged Out No longer eligible b ased on patient's age to complete this topic Pneumococcal 0-49 Aged Out No longer eligible based on patient's age to complete this topic RSV Immunization (<20 months) Aged Out No longer eligible based on patient's age to complete this topic Insurance [employer] BLUE CROSS ALL OTHERS NOT MEDICARE Care Teams Premix Concrete Batcher Relationship Specialty Start Date End Date Jong Krause DO PCP - General Family Medicine 09/06/15
--- OUTSIDE RECORDS SUMMARY | 2025-08-18 22:23 | XMS_ITS | Clinical Summary ---
Author Organization [facility] Address [address] [place] [address] Care Team Providers Care Insurance Sales Agent Name Role Phone Kristian Vo MD Primary Care Provider [phone] Source Comments This information has been disclosed to you from confidential records protectedfrom disclosure by state law. You shall make no further disclosure of thisinformation without the specific, written, and informed release of theindividual to whom it pertains, or as otherwise permitted by law. A generalauthorization for the release of medical or other information is not sufficientfor the purposes of therelease of HIV test results or diagnoses. [id number] Allergies No known active allergies Medications albuterol (PROVENTIL HFA;VENTOLIN HFA) 90 mcg/actuation inhaler Inhale 2 puffs into the lungs every 6 hours as needed for Wheezing. Active norgestimate-et hinyl estradiol (TRI-SPRINTEC, 28,) 0.18/0.215/0.25 mg-35 mcg (28) tablet Take 1 tablet by mouth daily. Active FLUoxetine (PROZAC) 20 MG capsule Take 25 mg by mouth daily. Active losartan (COZAAR) 50 MG tablet Take 1 tablet (50 mg total) by mouth 2 times a day. Active omeprazole (PRILOSEC) 20 MG capsule Take 25 mg by mouth every morning before breakfast. Active acetaminophen (TYLENOL EXTRA STRENGTH) 500 MG tablet Take 2 tablets (1,000 mg total) by mouth every 6 hours as needed. 60 tablet 10/09/2024 Active ibuprofen (MOTRIN) 600 MG tablet Take 1 tablet (600 mg total) by mouth every 6 hours as needed for Pain. 30 tablet 10/09/2024 Active senna-docusate (SENNA-S) 8.6-50 mg per tablet Take 1 tablet by mouth in the morning and at bedtime. 15 tablet 10/09/2024 Active Active Problems Problem Noted Date Diagnosed Date Asthma Family History Medical History Relation Comments Melanoma Neg Hx Social History Tobacco Use Types Packs/Day Years Used Date Smoking Tobacco: Never Smokeless Tobacco: Never Tobacco Cessation:Counseling Given: Not Answered Alcohol Use Standard Drinks/Week Comments Not Currently 0 (1 standard drink = 0.6 oz pur e alcohol) Comments No Sex and Gender Information Value Date Recorded Sex Assigned at Not on file Legal Sex Female 4:24 PM EST Gender Identity Not on file Sexual Orientation Not on file Last Filed Vital Signs Vital Sign Reading Time Taken Comments Blood Pressure 129/95 10/19/2024 9:29 AM EST Pulse 103 10/19/2024 9:29 AM EST Temperature 36.4 C (97.5 F) 10/09/2024 9:55 AM EST Respiratory Rate 20 10/09/2024 9:55 AM EST Oxygen Saturation 95% 10/09/2024 9:55 AM EST Inhaled Oxygen Concentration 95% 10/09/2024 9 :55 AM EST Weight 90.7 kg (200 lb) 10/19/2024 9:29 AM EST Height - - Body Mass Index - - Plan of Treatment Health Maintenance Due Date Last Done Comments Hepatitis C Screening (MyChart) 1997 Pulmonary Function Testing 1997 Depression Screening 2015 HIV Screening 2015 Immunization: Pneumococcal ( 1 of 2 - PCV) 2016 Cervical Cancer Screening/Pa p Smear (MyChart) 2018 Immunization: COVID-19 ( season) 2025 Immunization: Influenza (MyC bruno) (#1) 2025 08/17/2024, 09/03/2023 Immunization: DTaP/Tdap/Td ( 8 - Td or Tdap) 03/31/2029 03/31/2019, 01/01/2016, 06/18/2009, Additional history exists Immunization: Hepatitis B Completed 1997, 1997, 1997 Insurance BLUE ACCESS Care Teams Insurance Sales Agent Relationship Specialty Start Date End Date Kristian Vo MD PCP - General Internal Medicine 02/02/14
--- OUTSIDE RECORDS SUMMARY | 2025-08-18 22:23 | XMS_ITS | Encounter Summary ---
Author [place] [address] Care Team Providers Care Gold Leaf Roller Name Role Phone Jimi Aldridge DO Viral Primary Care Provider [phone] Kristian Vo MD Primary Care Provider [phone] Jesi Maxwell [facility] Unavailable Unavailab sheri Aldridge MD, Spike Unavailable Unavaila ble Jimi Aldridge DO Viral Primary Care Provider [phone] Kristian Vo MD Primary Care Provider [phone] Reason for Visit * Reason Onset Date Comments Medication Refill 09/06/2017 Encounter Details Date Type Department Care Team (Late st Contact Info) Description 09/06/2017 Refill [facility] [address] [place] [address] Zack Brown MD Medication Refill Social History Tobacco Use Types Packs/Day Years Used Date Smoking Tobacco: Never Smokeless Tobacco: Never Alcohol Use Standard Drinks/Week Comments No 0 (1 standard drink = 0.6 oz pur e alcohol) Sexually Active Control Partners Comments Yes OCP Male Comments No Sex and Gender Information Value Date Recorded Sex Assigned at Not on file Legal Sex Female 3:51 AM EDT Gender Identity Not on file Sexual Orientation Not on file documented as of this encounter Plan of Treatment Upcoming Encounters Date Type Department Care Team (Latest Contact Info) Description 08/23/2025 2:55 PM EDT Hospital Encounter [facility] [address] [place] [address] Aiden Méndez MD [address] [place] [address] [place] [address] Preop testing (Primary Dx) 08/23/2025 2:55 PM EDT Anesthesia Event [facility] [address] [place] [address] Sadia Donald, PLATFORM ATTENDANT [address] [facility] [address] [place] [address] 08/23/2025 2:55 PM EDT - 08/23/2025 4:00 PM EDT Surgery FTT PERIOP [address] [place] [address] Aiden Méndez MD [address] [place] [address] DR N[address] [place] [address] HEMORRHOIDECTOMY Scheduled Procedures Name Priority Associated Diagnoses [...] as of this encounter Visit Diagnoses Diagnosis Encounter for well woman exam without gynecological exam Preop testing Preoperative examination, unspecified Thrombosed external hemorrhoid External thrombosed hemorrhoids documented in this encounter Additional Health Concerns Infection Onset Date Last Indicated Resolved Time R/O COVID-19 12/06/2020 12/06/2020 12/26/2020 10:1 3 PM EST documented as of this encounter Care Teams Gold Leaf Roller Relationship Specialty Start Date End Date Jong Krause DO [address] [place] [address] PCP - General 08/26/10 12/08/20 Kristian Vo MD [address] [place] [address] PCP - General Internal Medicine 12/09/20 11/26/22 Jong Krause DO [address] [place] [address] PCP - General Family Medicine 11/27/22 12/23/22 Kristian Vo MD [address] [place] [address] PCP - General Internal Medicine 12/24/22 Jesi Maxwell LCSW Surveillance System Monitor 12/23/20 01/13/21 Spike Nix MD Medical Oncologist Internal Medicine-Hematology and Oncology 11/03/21 documented as of this encounter
--- OUTSIDE RECORDS SUMMARY | 2025-08-18 22:24 | XMS_ITS | Encounter Summary ---
Author Organization [place] [address] Care Team Providers Care Business Information Consultant Name Role Phone Boyd Aldridge MD, [facility] Kristian Vo MD Primary Care Provider [phone] Encounter Details Date Type Department Care Team (Late st Contact Info) Description 08/02/2025 Results Follow-Up [facility] [address] [place] [address] Kristian Vo MD [address] [place] [address] [place] APPENDIX Social History Tobacco Use Types Packs/Day Years [...] Date Recorded PHQ-2 Total Score 0 08/17/2024 [facility] [place] of Occupat ional Health - Occupational Stress [...] place to sleep or slept in a nursing home (including now)? No 12/28/2023 Sexually Active [...] 11:34 AM JÚNIORT Rina Calderon RMA * Does [...] Rina Calderon RMA documented in this encounter Progress Notes * Rina Calderon RMA - 08/02/2025 12:47 PM EDT Order placed as stat and pt notified. She will call to schedule the appointment. documented in this encounter Plan of Treatment Upcoming Encounters Date Type Department Care Team (Latest Contact Info) Description 08/23/2025 2:55 PM EDT Hospital Encounter [facility]TT [facility] [address] [place] [address] Aiden Méndez MD [address] [place] [address] DR NUR [facility] [place] [address] Preop testing (Primary Dx) 08/23/2025 2:55 PM EDT Anesthesia Event FTT [facility] [address] [place] [address] Sadia Donald APRN [address] [facility] [address] [place] [address] 08/23/2025 2:55 PM EDT - 08/23/2025 4:00 PM EDT Surgery FTT [facility]IOP [address] [place] [address] Aiden Méndez MD [address] [place] [address] [place] [address] HEMORRHOIDECTOMY Scheduled Procedures Name Priority Associated Diagnoses [...] on filedocumented in this encounter Care Teams Business Information Consultant Relationship Specialty Start Date End Date Kristian Vo MD [address] [place] [address] [place] [address] PCP - General Internal Medicine 12/24/22 Spike Nix MD Medical Oncologist Internal Medicine-Hematology and Oncology 11/03/21 documented as of this encounter
--- OUTSIDE RECORDS SUMMARY | 2025-08-18 22:24 | XMS_ITS | Encounter Summary ---
Author Organization [place] [address] Care Team Providers Care Classroom Instructional Aide Name Role Phone Boyd Aldridge MD, [facility] Kristian Vo MD Primary Care Provider [phone] Reason for Visit * Reason Onset Date Comments Results 08/02/2025 Encounter Details Date Type Department Care Team (Late st Contact Info) Description 08/02/2025 [facility] [address] [place] [address] Kristian Vo MD [address] [place] [address] Results Social History Tobacco Use Types Packs/Day Years [...] Date Recorded PHQ-2 Total Score 0 08/17/2024 [facility] [place] of Occupat ional Health - Occupational Stress [...] place to sleep or slept in a fpc (including now)? No 12/28/2023 Sexually Active Control [...] Assessment Author No 08/17/2024 11:34 AM EDT Heidi CalderonberALEKSANDR escobar documented as of this encounter Mental Status * Because of a physical, mental or emotional condition, does this person have serious difficulty concentrating, remembering or making decisions? Answer Entry Date Author No 08/17/2024 11:34 AM EDT Heidi Calderonvioletta ALEKSANDR documented in this encounter Miscellaneous Notes * Telephone Encounter - Tanja Hernadez - 08/02/2025 12:07 PM EDT US Appendix results now in [facility]. Elvira to inform Dr. Vo. documented in this encounter Plan of Treatment Upcoming Encounters Date Type Department Care Team (Latest Contact Info) Description 08/23/2025 2:55 PM EDT Hospital Encounter [facility] [address] [place] [address]Aiden Rondon MD [address] [place] [address] [place] [address] Preop testing (Primary Dx) 08/23/2025 2:55 PM EDT Anesthesia Event FTT [facility] [address] [place] [address]Sadia Arizmendi APRN 1 [facility] [place] [facility] 08/23/2025 2:55 PM EDT - 08/23/2025 4:00 PM EDT Surgery FTT PERIOP [address] [place] [address]Aiden Rondon MD [address] [place] [address] [place] [address] HEMORRHOIDECTOMY Scheduled Procedures Name Priority Associated [...] on filedocumented in this encounter Care Teams Classroom Instructional Aide Relationship Specialty Start Date End Date Kristian Vo MD [address] [place] [address] PCP - General Internal Medicine 12/24/22 Spike Nix MD Medical Oncologist Internal Medicine-Hematology and Oncology 11/03/21 documented as of this encounter
--- OUTSIDE RECORDS SUMMARY | 2025-08-18 22:24 | XMS_ITS | Encounter Summary ---
Author Organization [facility] [place] [address] Care Team Providers Care Residential Sales Rep Name Role Phone Boyd Aldridge MD, [facility] Kristian Alves MD Primary Care Provider [phone] Encounter Details Date Type Department Care Team (Latest Contact Info) Description 08/10/2025 Travel Social History Tobacco Use Types Packs/Day Years [...] Date Recorded PHQ-2 Total Score 0 08/17/2024 [facility] [place] of Occupat ional Health - Occupational Stress [...] place to sleep or slept in a correction (including now)? No 12/28/2023 Sexually Active Control [...] 08/17/2024 11:34 AM Rina Durand RMA * Is the person blind [...] PERIOP [address] [place] [id number] Aiden Méndez MD [address] [place] [address] [place] [address] Preop testing (Primary Dx) 08/23/2025 2:55 PM EDT Anesthesia Event FTT PERIOP [address] [place] [address] Sadia Donald APRN [address] [facility] [place] [address] [place] [id number] 08/23/2025 2:55 PM EDT - 08/23/2025 4:00 PM EDT Surgery FTT PERIOP [address] [place] [id number] Aiden Méndez MD [address] [place] [address] [place] [address] HEMORRHOIDECTOMY Scheduled Procedures Name Priority Associated Diagnoses [...] on filedocumented in this encounter Care Teams Residential Sales Rep Relationship Specialty Start Date End Date Kristian Vo MD [address] [place] [address] [place] [phone] PCP - General Internal Medicine 12/24/22 Spike Nix MD Medical Oncologist Internal Medicine-Hematology and Oncology 11/03/21 documented as of this encounter
--- OUTSIDE RECORDS SUMMARY | 2025-08-18 22:24 | XMS_ITS | Encounter Summary ---
Author Organization [facility] [address] Care Team Providers Care Surgeon/President Name Role Phone Boyd Aldridge MD, [facility] Kristian Alves MD Primary Care Provider [phone] Encounter Details Date Type Department Care Team (Latest Contact Info) Description 08/09/2025 Travel Social History Tobacco Use Types Packs/Day [...] Date Recorded PHQ-2 Total Score 0 08/17/2024 [facility] [place] of Occupat ional Health - Occupational Stress [...] place to sleep or slept in a fdc (including now)? No 12/28/2023 Sexually Active Control [...] PERIOP [address] [place] [address] Aiden Mnédez MD [address] [place] [address] [place] [address] Preop testing (Primary Dx) 08/23/2025 2:55 PM EDT Anesthesia Event FTT PERIOP [address] [place] [address] Sadia Donald APRN [address] [facility] [place] [address] [place] [address] 08/23/2025 2:55 PM EDT - 08/23/2025 4:00 PM EDT Surgery FTT PERIOP [address] [place] [address] Aiden Méndez MD [address] [place] [address] [place] [address] HEMORRHOIDECTOMY Scheduled Procedures Name Priority Associated Diagnoses [...] on filedocumented in this encounter Care Teams Surgeon/President Relationship Specialty Start Date End Date Kristian Vo MD [address] [place] [address] [place] [phone] PCP - General Internal Medicine 12/24/22 Spike Nix MD Medical Oncologist Internal Medicine-Hematology and Oncology 11/03/21 documented as of this encounter
--- OUTSIDE RECORDS SUMMARY | 2025-08-18 22:24 | XMS_ITS | Encounter Summary ---
Author Organization [place] [address] Care Team Providers Care Spiritual Counselor Name Role Phone Boyd Aldridge MD, [facility] Kristian Vo MD Primary Care Provider [phone] Reason for Visit * Reason Onset Date Comments Medication Refill 07/27/2025 Encounter Details Date Type Department Care Team (Late st Contact Info) Description 07/27/2025 Refill [facility] [address] [place] [address] Kristian Vo MD [address] [place] [address] Medication Refill Social History Tobacco [...] Date Recorded PHQ-2 Total Score 0 08/17/2024 [facility] [place] of Occupat ional Health - Occupational Stress [...] place to sleep or slept in a care home (including now)? No 12/28/2023 Sexually Active [...] Assessment Author No 08/17/2024 11:34 AM EDT Bobemma RinaALEKSANDR * Because of a physical, mental [...] Rina Calderon RMA documented in this encounter Ordered Prescriptions Prescription Sig Dispense Quantity Refills Last Filled Start Date End Date escitalopram oxalate (LEXAPRO) 10 mg Oral TabletIndications: Generalized anxiety disorder Take 1 Tablet by mouth daily. 30 Tablet 3 07/27/2025 omeprazole (PRILOSEC) 20 mg Oral Capsule, Delayed Release(E.C.)Indic ations:Dyspepsia Take 1 Capsule by mouth 2 times daily (before meals). 60 Capsule 2 07/27/2025 valsartan-hydrochl orothiazide (DIOVAN-HCT) 160-12.5 mg Oral TabletIndications: Benign essential HTN Take 1 Tablet by mouth daily. 30 Tablet 07/27/2025 documented in this encounter Plan of Treatment Upcoming Encounters Date Type Department Care Team (Latest Contact Info) Description 08/23/2025 2:55 PM EDT Hospital Encounter FTT PERIOP [address] [place] [address] Aiden Méndez MD [address] [place] [address] Preop testing (Primary Dx) 08/23/2025 2:55 PM EDT Anesthesia Event FTT PERIOP [address] [place] [address] Sadia Donald APRN [address] [facility] [place] [address] [place] [address] 08/23/2025 2:55 PM EDT - 08/23/2025 4:00 PM EDT Surgery FTT PERIOP [address] [place] [address] Aiden Méndez MD [address] [place] [address] [place] [address] HEMORRHOIDECTOMY Scheduled Procedures Name Priority [...] as of this encounter Visit Diagnoses Diagnosis Benign essential HTN Essential hypertension, benign Dyspepsia Dyspepsia and other specified disorders of function of stomach Generalized anxiety disorder Preop testing Preoperative examination, unspecified Thrombosed external hemorrhoid External thrombosed hemorrhoids documented in this encounter Discontinued Medications Medication Sig Discontinue Reason Start Date End Da te valsartan-hydrochlorothi azide (DIOVAN-HCT) 160-12.5 mg Oral TabletIndications:Benign essential HTN Take 1 Tablet by mouth daily. Reorder 06/04/2025 07/27/2025 omeprazole (PRILOSEC) 20 mg Oral Capsule, Delayed Release(E.C.)Indications :Dyspepsia Take 1 Capsule by mouth 2 times daily (before meals). Reorder 06/04/2025 07/27/2025 escitalopram oxalate (LEXAPRO) 10 mg Oral TabletIndications:Genera lized anxiety disorder Take 1 Tablet by mouth daily. Reorder 06/04/2025 07/27/2025 documented as of this encounter Care Teams Spiritual Counselor Relationship Specialty Start Date End Date Kristian Vo MD [address] [place] [address] PCP - General Internal Medicine 12/24/22 Spike Nix MD Medical Oncologist Internal Medicine-Hematology and Oncology 11/03/21 documented as of this encounter
--- OUTSIDE RECORDS SUMMARY | 2025-08-18 22:24 | XMS_ITS | Encounter Summary ---
Author Organization [place] [address] Care Team Providers Care Fiber Optic Central Office Installer Name Role Phone Boyd Aldridge MD, Kristian Mayer MD Primary Care Provider [phone] Encounter Details Date Type Department Care Team (Late st Contact Info) Description 08/15/2025 Orders Only EDG Anesthesia [facility] [address] [place] [facility] Sadia Donald APRN [address] [facility] [address] [place] [facility] Preop testing (Primary Dx) Social History Tobacco Use Types [...] Date Recorded PHQ-2 Total Score 0 08/17/2024 [facility] of Occupat ional Health - Occupational Stress [...] place to sleep or slept in a detention (including now)? No 12/28/2023 Sexually Active Control [...] No 08/17/2024 11:34 AM EDT Rina Calderon CASSIEToma * Because of a physical, mental or [...] FTT PERIOP [address] [place] [address] Aiden Méndez MD [address] [place] [address] [place] [address] Preop testing (Primary Dx) 08/23/2025 2:55 PM EDT Anesthesia Event FTT PERIOP [address] [place] [address] Sadia Donald, [place] [address] [facility] [place] [address] 08/23/2025 2:55 PM EDT - 08/23/2025 4:00 PM EDT Surgery FTT PERIOP [address] [place] [address] Aiden Méndez MD [address] [place] [address] DR [address] [place] [address] HEMORRHOIDECTOMY Scheduled Procedures Name Priority Associated Diagnoses [...] thrombosed hemorrhoids Preop testing Preoperative examination, unspecified Preop testing- Primary Preoperative examination, unspecified Thrombosed external hemorrhoid External thrombosed hemorrhoids documented in this encounter Orders E-Consult Count Last Ordered Date First Orde red Date AMB E-CONSULT TO CARDIOLOGY 1 08/15/2025 documented in this encounter Care Teams Fiber Optic Central Office Installer Relationship Specialty Start Date End Date Kristian Vo MD [address] [facility] [place] [address] PCP - General Internal Medicine 12/24/22 Spike Nix MD Medical Oncologist Internal Medicine-Hematology and Oncology 11/03/21 documented as of this encounter
--- OUTSIDE RECORDS SUMMARY | 2025-08-18 22:24 | XMS_ITS | Encounter Summary ---
Author Organization [place] [address] Care Team Providers Care Online Merchandising Specialist Name Role Phone Boyd Aldridge MD, Kristian Mayer MD Primary Care Provider [phone] Encounter Details Date Type Department Care Team (Latest Contact Info) Description 06/27/2025 Results Follow-Up [facility] [address] [place] [address] Binu Flores, DO [address] [place], [place] [id number] CBC WITH DIFF, COMPREHENSIVE METABOLIC PANEL, LIPID PANEL REFLEX Social History Tobacco Use Types Packs/Day Years [...] Date Recorded PHQ-2 Total Score 0 08/17/2024 [facility] [place] of Occupat ional Health - Occupational Stress [...] Assessment Author No 08/17/2024 11:34 AM EDT Kvng RinaALEKSANDR * Because of [...] PERIOP [address] [place] [address] Aiden Méndez MD [address] [facility] [address] NUR [facility] [place] [address] Preop testing (Primary Dx) 08/23/2025 2:55 PM EDT Anesthesia Event FTT PERIOP [address] [place] [address] Sadia Donadl APRN [address] [facility] [address] [place] [place] [address] 08/23/2025 2:55 PM EDT - 08/23/2025 4:00 PM EDT Surgery FTT PERIOP [address] [place] [address] [place] [address]Aiden Rondon MD [address] [place] [address] [place] [address] HEMORRHOIDECTOMY Scheduled Procedures Name Priority Associated Diagnoses [...] on filedocumented in this encounter Care Teams Online Merchandising Specialist Relationship Specialty Start Date End Date Kristian Vo MD [address] [place] [address] PCP - General Internal Medicine 12/24/22 Spike Nix MD Medical Oncologist Internal Medicine-Hematology and Oncology 11/03/21 documented as of this encounter
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
--- OUTSIDE RECORDS SUMMARY | 2025-08-18 22:24 | XMS_ITS | Encounter Summary ---
Author Organization [facility] [place] [address] Care Team Providers Care Merchandise Worker Name Role Phone Boyd Aldridge MD, Kristian Mayer MD Primary Care Provider [phone] Reason for Visit * Reason Onset Date Comments Surgery 08/10/2025 Encounter Details Date Type Department Care Team (Late st Contact Info) Description 08/10/2025 Telephone SEP Gen Surg EDG [address] [facility] [address] [place] [address] Keeley Kaiser, Clerical Staff Surgery Social History Tobacco Use Types Packs/Day Years [...] Date Recorded PHQ-2 Total Score 0 08/17/2024 [facility] - Occupational Stress [...] place to sleep or slept in a longterm (including now)? No 12/28/2023 Sexually Active Control [...] Rina Calderon RMA documented in this encounter Miscellaneous Notes * Telephone Encounter - Keeley Kaiser, Clerical Staff - 08/10/2025 2:36 PM EDT Surgery Information Date: 08/23/25 Arrival time: 1130am Approximate surgery time: 1pm Location: [place] [address] No food after midnight. You may have certain clear liquids up to 2 hours prior to arrival time; Water or Gatorade/ Powerade, Black coffee, or tea (no cream or sugar) Cutter Inspector It is important to have a Cutter Inspector, someone who is 18 years or older, to accompany you and remain in the facility for the duration of your surgery. This person should be available for the SurgeryTeam to communicate with before, during and after your surgery. Because you are receiving anesthesia, someone is needed to drive you home and remain with you for at least 24 hours after surgery to make sure you are safe during that time. Pre testing department through the hospital will call and go over medications, and medical history. If you have any questions or concerns, please send me a message through [facility] or call the office at [phone]. Thanks! Alyssia * Telephone Encounter - Mildred Keating CCMA - 08/10/2025 2:16 PM EDT Patient called wanting to schedule surgery. Patient would like a call back * Telephone Encounter - Osei Lowry - 08/10/2025 1:13 PM EDT pt LVM returning call to schedule * Telephone Encounter - Keeley Kaiser, Clerical Staff - 08/10/2025 11:49 AM EDT 08/10/25 @ 1149am called and left VM about scheduling surgery. * Telephone Encounter - Keeley Kaiser, Julianrical Staff - 08/10/2025 11:48 AM EDT Order Questions Question Answer Comment Admission Class Outpatient Clearance Needed Prior to Surgery None ERAS No Prep Enema Prep Fleets enema evening before surgery and morning of surgery Length of time needed if different from standard: standard Positioning Armando-knife Prone Pre-op appointment with: None Stoma marking/ Ostomy teaching No Surgery: [id number], int & ext; simple Anesthesia: General Location: [facility] Main OR Schedule procedure within: Choice Patient would like to schedule during her school Fall break -No latex allergy -No anticoagulant -No weight loss meds documented in this encounter Plan of Treatment Upcoming Encounters Date Type Department Care Team (Latest Contact Info) Description 08/23/2025 2:55 PM EDT Hospital Encounter [facility] [address] [place] [address] Aiden Méndez MD [address] [place] [address] Preop testing (Primary Dx) 08/23/2025 2:55 PM EDT Anesthesia Event [facility] [address] [place] [address] Sadia Donald APRN [address] [place] [address] 08/23/2025 2:55 PM EDT - 08/23/2025 4:00 PM EDT Surgery [facility] [address] [place] [address] Aiden Méndez MD [address] [place] [address] HEMORRHOIDECTOMY Scheduled Orders Name Type Priority Associated Diagnoses Orde r Schedule SURGICAL/PROCEDURE CASE REQUEST Procedures Routine Thrombosed external hemorrhoid Ordered: 08/10/2025 Scheduled Procedures Name Priority Associated Diagnoses Date/Ti [...] hemorrhoids documented in this encounter Care Teams Merchandise Worker Relationship Specialty Start Date End Date Kristian Vo MD [address] [place] [address] [place] [id number] PCP - General Internal Medicine 12/24/22 Spike Nix MD Medical Oncologist Internal Medicine-Hematology and Oncology 11/03/21 documented as of this encounter
[2025-08-18 22:30] VITALS: BP 116/92; PULSE 71; RESP 20; O2SAT 100
[2025-08-18 23:12] VITALS: BP 120/82; PULSE 80; RESP 13; TEMP 36.8; O2SAT 98
== END 2025-08-18 23:46 | disposition home or self-care (01) ==
PROVIDERS: Emergency Provider Student in an Organized Health Care Education/Training Program; PCP Pediatrics
DX: F10.929 Alcohol use, unspecified with intoxication, unspecified (principal); R11.2 Nausea with vomiting, unspecified
CPT/HCPCS: 96361; 96374; 99284; 99285; J2405; J7120